=== PATIENT | female | born 1980 | race Caucasian/White ===

== ENCOUNTER → 2019-01-19 | Outpatient (CLI) | payer OTHER | END | disposition home or self-care (01) | LOC: WOUND 07:46 | PROVIDERS: ATTEND Family Medicine | DX: T81.89XA Other complications of procedures, not elsewhere classified, initial encounter (principal); I87.333 Chronic venous hypertension (idiopathic) with ulcer and inflammation of bilateral lower extremity; L97.211 Non-pressure chronic ulcer of right calf limited to breakdown of skin; L97.821 Non-pressure chronic ulcer of other part of left lower leg limited to breakdown of skin; L97.311 Non-pressure chronic ulcer of right ankle limited to breakdown of skin; E06.5 Other chronic thyroiditis; G89.29 Other chronic pain; M25.50 Pain in unspecified joint; E78.5 Hyperlipidemia, unspecified; M06.9 Rheumatoid arthritis, unspecified; M05.10 Rheumatoid lung disease with rheumatoid arthritis of unspecified site; F17.200 Nicotine dependence, unspecified, uncomplicated; E66.01 Morbid (severe) obesity due to excess calories; Z68.43 Body mass index [BMI] 50.0-59.9, adult; Z90.49 Acquired absence of other specified parts of digestive tract; Y92.89 Other specified places as the place of occurrence of the external cause; Y83.8 Other surgical procedures as the cause of abnormal reaction of the patient, or of later complication, without mention of misadventure at the time of the procedure | CPT/HCPCS: 97597; 97598; 99205 ==

== ENCOUNTER 2019-01-26 09:39 | Outpatient (CLI) | payer OTHER | END 2019-01-26 23:59 | disposition home or self-care (01) | LOC: WOUND 09:39 | PROVIDERS: ATTEND Family Medicine | DX: T81.89XD Other complications of procedures, not elsewhere classified, subsequent encounter (principal); I87.333 Chronic venous hypertension (idiopathic) with ulcer and inflammation of bilateral lower extremity; L97.211 Non-pressure chronic ulcer of right calf limited to breakdown of skin; L97.821 Non-pressure chronic ulcer of other part of left lower leg limited to breakdown of skin; L97.311 Non-pressure chronic ulcer of right ankle limited to breakdown of skin; E06.5 Other chronic thyroiditis; G89.29 Other chronic pain; M25.50 Pain in unspecified joint; E78.5 Hyperlipidemia, unspecified; M06.9 Rheumatoid arthritis, unspecified; M05.10 Rheumatoid lung disease with rheumatoid arthritis of unspecified site; F17.200 Nicotine dependence, unspecified, uncomplicated; E66.01 Morbid (severe) obesity due to excess calories; Z68.43 Body mass index [BMI] 50.0-59.9, adult; Z90.49 Acquired absence of other specified parts of digestive tract; Y83.8 Other surgical procedures as the cause of abnormal reaction of the patient, or of later complication, without mention of misadventure at the time of the procedure | CPT/HCPCS: 97597; 97598 ==

== ENCOUNTER 2019-02-02 10:24 | Outpatient (CLI) | payer OTHER | END 2019-02-02 23:59 | disposition home or self-care (01) | LOC: WOUND 10:24 | PROVIDERS: ATTEND Family Medicine | DX: T81.89XD Other complications of procedures, not elsewhere classified, subsequent encounter (principal); I87.333 Chronic venous hypertension (idiopathic) with ulcer and inflammation of bilateral lower extremity; L97.211 Non-pressure chronic ulcer of right calf limited to breakdown of skin; L97.821 Non-pressure chronic ulcer of other part of left lower leg limited to breakdown of skin; L97.311 Non-pressure chronic ulcer of right ankle limited to breakdown of skin; E06.5 Other chronic thyroiditis; G89.29 Other chronic pain; M25.50 Pain in unspecified joint; E78.5 Hyperlipidemia, unspecified; M06.9 Rheumatoid arthritis, unspecified; M05.10 Rheumatoid lung disease with rheumatoid arthritis of unspecified site; F17.200 Nicotine dependence, unspecified, uncomplicated; E66.01 Morbid (severe) obesity due to excess calories; Z68.43 Body mass index [BMI] 50.0-59.9, adult; Z90.49 Acquired absence of other specified parts of digestive tract; Y83.8 Other surgical procedures as the cause of abnormal reaction of the patient, or of later complication, without mention of misadventure at the time of the procedure | CPT/HCPCS: 97597; 97598 ==

== ENCOUNTER 2019-02-02 11:10 | Outpatient (CLI) | payer OTHER | END 2019-02-02 23:59 | disposition home or self-care (01) | LOC: CVU 11:10 | PROVIDERS: ATTEND Family Medicine | DX: L97.811 Non-pressure chronic ulcer of other part of right lower leg limited to breakdown of skin (principal); I70.203 Unspecified atherosclerosis of native arteries of extremities, bilateral legs | CPT/HCPCS: 93922; 93925; 93970 ==

== ENCOUNTER 2019-02-16 10:38 | Outpatient (CLI) | payer OTHER | END 2019-02-16 23:59 | disposition home or self-care (01) | LOC: WOUND 10:38 | PROVIDERS: ATTEND Family Medicine | DX: T81.89XD Other complications of procedures, not elsewhere classified, subsequent encounter (principal); I87.333 Chronic venous hypertension (idiopathic) with ulcer and inflammation of bilateral lower extremity; L97.211 Non-pressure chronic ulcer of right calf limited to breakdown of skin; L97.821 Non-pressure chronic ulcer of other part of left lower leg limited to breakdown of skin; L97.311 Non-pressure chronic ulcer of right ankle limited to breakdown of skin; M05.10 Rheumatoid lung disease with rheumatoid arthritis of unspecified site; E06.5 Other chronic thyroiditis; G89.29 Other chronic pain; M25.50 Pain in unspecified joint; E78.5 Hyperlipidemia, unspecified; M06.9 Rheumatoid arthritis, unspecified; F17.200 Nicotine dependence, unspecified, uncomplicated; E66.01 Morbid (severe) obesity due to excess calories; Z68.43 Body mass index [BMI] 50.0-59.9, adult; Z90.49 Acquired absence of other specified parts of digestive tract; Y83.8 Other surgical procedures as the cause of abnormal reaction of the patient, or of later complication, without mention of misadventure at the time of the procedure | CPT/HCPCS: 97597 ==

== ENCOUNTER 2019-02-23 09:46 | Outpatient (CLI) | payer OTHER | END 2019-02-23 23:59 | disposition home or self-care (01) | LOC: WOUND 09:46 | PROVIDERS: ATTEND Family Medicine | DX: T81.89XD Other complications of procedures, not elsewhere classified, subsequent encounter (principal); I87.333 Chronic venous hypertension (idiopathic) with ulcer and inflammation of bilateral lower extremity; L97.211 Non-pressure chronic ulcer of right calf limited to breakdown of skin; L97.821 Non-pressure chronic ulcer of other part of left lower leg limited to breakdown of skin; L97.311 Non-pressure chronic ulcer of right ankle limited to breakdown of skin; M05.10 Rheumatoid lung disease with rheumatoid arthritis of unspecified site; E06.5 Other chronic thyroiditis; G89.29 Other chronic pain; M25.50 Pain in unspecified joint; E78.5 Hyperlipidemia, unspecified; M06.9 Rheumatoid arthritis, unspecified; F17.200 Nicotine dependence, unspecified, uncomplicated; E66.01 Morbid (severe) obesity due to excess calories; Z68.43 Body mass index [BMI] 50.0-59.9, adult; Z90.49 Acquired absence of other specified parts of digestive tract; Y83.8 Other surgical procedures as the cause of abnormal reaction of the patient, or of later complication, without mention of misadventure at the time of the procedure | CPT/HCPCS: 97597 ==

== ENCOUNTER 2019-06-01 10:51 | Inpatient (IN) | payer BC ==
[~2019-06-01] VITALS: Ht 170.2 cm; Wt 147.0 kg
--- NOTE | 2019-06-01 11:00 | NUR ---
PT AMBULATORY WITH STEADY GAIT FROM TRIAGE TO ROOM.
[2019-06-01] MEDS ORDERED: ANTIBIOTIC (11:16)
--- NOTE | 2019-06-01 11:18 | NUR ---
PT HERE FOR POSSIBLE INFECTION TO RLE. HAD SURGERY FOR BROKEN FIBULA/DISLOCATED ANKLE IN DECEMBER 2017. INFECTION DEVELOPED BY 2017. HAS BEEN SEEING WOUND CARE IN [place] SINCE THEN. PT SENT TO ER BY WOUND CARE TODAY. PT WAS DX WITH STEP ON TUESDAY. PT STATES THAT TODAY SHE WOKE UP WITH NEW REDNESS SURROUNDING WOUND THAT SPREAD UP THIGH TO GROIN. PT RESTING ON GURNEY. VSS. NADN. GALEANO AT BEDSIDE ASSESSING PT AND DISCUSSING POC NOW. PT HAS BEEN ON UNKNOWN ABX FOR STREP SINCE TUESDAY, HAS NOT BEEN ON ABX FOR WOUND.
[2019-06-01] MEDS ORDERED: SODIUM CHLORIDE FLUSH 10ML SYR IVF ONE (11:30)
[2019-06-01] MEDS ORDERED: MEROPENEM 1 GM in SODIUM CHLORIDE 0.9% 100 ML IVPB ONE (11:30)
[2019-06-01 11:39] LABS: MEAN CORPUSCULAR HGB CONC 32.5 g/dL (32.4-35.8); MEAN PLATELET VOLUME 8.8 fL (7.4-10.4); PLATELET COUNT 294 x10^3/uL (130-400); RED BLOOD COUNT 4.43 x10^6/uL (3.82-5.3)
[2019-06-01 12:01] LABS: BASOPHILS % (AUTO) 0 % (0-1); EOSINOPHILS % (AUTO) 0 % (1-7); LYMPHOCYTES # (AUTO) 0.55 x10^3/uL (1-3.4); LYMPHOCYTES % (AUTO) 3 % (22-44); MD SCAN; MONOCYTES # (AUTO) 0.42 x10^3/uL (0.2-0.8); MONOCYTES % (AUTO) 3 % (2-9); NEUTROPHILS # (AUTO) 15.52 x10^3/uL (1.8-6.8); NEUTROPHILS % (AUTO) 94 % (42-75)
--- NOTE | 2019-06-01 12:08 | NUR ---
Note josselyn in EDM - 06/01/19 at 1212 by RADHA PT BACK FROM CT. DENIES NAUSEA, NO CHANGE IN ABDOMINAL PAIN. RESTING CALMLY, CALL KEITH IN REACH, VSS. AWAITING CT RESULTS.
--- NOTE | 2019-06-01 12:13 | NUR ---
PT RESTING ON AJ. GOKUL. VSS. DENIES NEEDS AT THIS TIME. AWARE OF POC.
[2019-06-01] MEDS ORDERED: NAPR-685 PO (12:16)
[2019-06-01] MEDS ORDERED: POTASSIUM (12:16)
[2019-06-01] MEDS ORDERED: CHOL2000 PO (12:16)
[2019-06-01] MEDS ORDERED: OMEP-110 PO (12:16)
[2019-06-01] MEDS ORDERED: ALBU0.63 NEB (12:16)
[2019-06-01] MEDS ORDERED: LEVO200T5 PO (12:16)
[2019-06-01] MEDS ORDERED: FURO20TA3 PO (12:16)
[2019-06-01] MEDS ORDERED: PREDNISONE (12:16)
[2019-06-01 13:07] LABS: ALBUMIN 2.7 g/dL (3.4-5.0); ANION GAP 9 mmol/L (5-15); CALCIUM 8.7 mg/dL (8.5-10.1); CHLORIDE 106 mmol/L (98-107)
[2019-06-01 13:10] LABS: ALANINE AMINOTRANSFERASE 41 U/L (12-78); CREATININE 1.01 mg/dL (0.55-1.02)
[2019-06-01 13:12] LABS: ALKALINE PHOSPHATASE 76 U/L (45-117); BILIRUBIN,TOTAL 0.7 mg/dL (0.2-1.0); TOTAL PROTEIN 8.6 g/dL (6.4-8.2)
[2019-06-01] MEDS ORDERED: SODIUM CHLORIDE FLUSH 10ML SYR IVF PRN (13:30)
[2019-06-01] MEDS ORDERED: SODIUM CHLORIDE 0.9% 1,000ML IVBOLUS ONE (13:30)
--- NOTE | 2019-06-01 13:41 | NUR ---
RECEIVED BEDSIDE REPORT FROM LM ORTEGA.
--- NOTE | 2019-06-01 13:53 | NUR ---
PT RESTING ON GURNEY. NO ACUTE DISTRESS NOTED. PT VERBALIZES UNDERSTANDING REGARDING POC. NO NEEDS REQUESWTED AT THIS TIME.
--- NOTE | 2019-06-01 14:08 | NUR ---
REPORT TO LM ESPINO. ALL QUESTIONS ANSWERED.
--- NOTE | 2019-06-01 14:41 | NUR ---
PT BEING TRANSPORTED TO FLOOR. PT LEFT WITH ALL PERSONAL BELONGINGS. FAMILY WITH PT.
[2019-06-01] MEDS ORDERED: ENOXAPARIN 40 MG/0.4 ML SQ SCH (15:00)
[2019-06-01] MEDS ORDERED: ONDANSETRON ODT 4 MG PO PRN (15:00)
[2019-06-01] MEDS ORDERED: ONDANSETRON 2MG/ML, 2ML IVPush PRN (15:00)
[2019-06-01] MEDS ORDERED: DOCUSATE 100 MG CAPSULE PO PRN (15:00)
[2019-06-01] MEDS ORDERED: ACETAMINOPHEN 325 MG TABLET PO PRN (15:00)
[2019-06-01] MEDS ORDERED: POLYETHYLENE GLYCOL 17 GM PACKET PO PRN (15:00)
[2019-06-01 15:33] VITALS: BP 100/65
[2019-06-01] MEDS: CLINDAMYCIN PMX 600MG/50ML 50 ML IV SCH (15:58)
[2019-06-01 16:08] VITALS: BP 114/79
[2019-06-01 16:46] LABS: HCT (SEDRATE) 35.5 % (34.6-47.8)
[2019-06-01 17:01] LABS: HEMOGLOBIN A1C 6.1 % (4.2-6.3)
[2019-06-01] MEDS: LACTATED RINGERS 1,000 ML IV SCH (17:41)
[2019-06-01 19:18] VITALS: BP 107/61
[2019-06-01] MEDS: IBUPROFEN 600 MG TABLET PO PRN (20:54)
[2019-06-02] MEDS: CLINDAMYCIN PMX 600MG/50ML 50 ML IV SCH ×2 (00:27→10:33)
[2019-06-02 01:21] VITALS: BP 110/65
[2019-06-02] MEDS: LACTATED RINGERS 1,000 ML IV SCH ×2 (04:30→15:09)
[2019-06-02] MEDS ORDERED: LEVOTHYROXINE 100 MCG TABLET ONE ×2 (04:57→10:29)
[2019-06-02] MEDS: LEVOTHYROXINE 200 MCG TABLET PO SCH (05:02)
[2019-06-02 05:13] LABS: BASOPHILS # (AUTO) 0.01 x10^3/uL (0-0.1); BASOPHILS % (AUTO) 0 % (0-1); EOSINOPHILS # (AUTO) 0.02 x10^3/uL (0-0.4); EOSINOPHILS % (AUTO) 0 % (1-7); LYMPHOCYTES # (AUTO) 1.29 x10^3/uL (1-3.4); LYMPHOCYTES % (AUTO) 8 % (22-44); MD NO; MEAN CORPUSCULAR HEMOGLOBIN 26.4 pg (27.0-34.8); MEAN CORPUSCULAR VOLUME 82.4 fL (80-100); MEAN PLATELET VOLUME 9.7 fL (7.4-10.4); MONOCYTES # (AUTO) 0.71 x10^3/uL (0.2-0.8); MONOCYTES % (AUTO) 4 % (2-9); NEUTROPHILS # (AUTO) 15.03 x10^3/uL (1.8-6.8); NEUTROPHILS % (AUTO) 88 % (42-75); PLATELET COUNT 313 x10^3/uL (130-400); RED BLOOD COUNT 4.23 x10^6/uL (3.82-5.3); RED CELL DISTRIBUTION WIDTH 15.5 % (9.6-15.2)
[2019-06-02 05:27] LABS: ANION GAP 7 mmol/L (5-15); CALCIUM 8.7 mg/dL (8.5-10.1); CHLORIDE 107 mmol/L (98-107)
[2019-06-02 05:28] LABS: CREATININE 0.81 mg/dL (0.55-1.02)
[2019-06-02 07:45] VITALS: BP 108/72
[2019-06-02] MEDS ORDERED: LEVOTHYROXINE 200 MCG TABLET PO SCH (09:00)
[2019-06-02] MEDS ORDERED: GADOTERATE 5 MMOL/10 ML VIAL ONE (09:30)
[2019-06-02] MEDS ORDERED: GADOTERATE 10 MMOL/20 ML SYR ONE (09:30)
[2019-06-02] MEDS: IBUPROFEN 600 MG TABLET PO PRN ×2 (10:32→17:23)
[2019-06-02] MEDS: OMEPRAZOLE 20 MG CAPSULE.DR PO SCH (10:33)
[2019-06-02] MEDS ORDERED: VANCOMYCIN PER PHARMACY MC PRN (12:00)
[2019-06-02] MEDS ORDERED: PHARMACOKINETIC MONITORING MC PRN (12:00)
[2019-06-02] MEDS ORDERED: PHARMACOKINETIC CONSULTATION MC ONE (12:00)
[2019-06-02] MEDS ORDERED: VANCOMYCIN 2,200 MG in SODIUM CHLORIDE 0.9% 500 ML IV SCH (12:30)
[2019-06-02] MEDS ORDERED: ENOXAPARIN 30 MG/0.3 ML SQ SCH (15:30)
[2019-06-02] MEDS: ENOXAPARIN 30 MG/0.3 ML SQ SCH (15:30)
[2019-06-02 17:10] VITALS: BP 118/78
[2019-06-02] MEDS: CLINDAMYCIN PMX 900MG/50ML 50 ML IV SCH (18:28)
[2019-06-02 19:27] VITALS: BP 99/64
[2019-06-03] MEDS: VANCOMYCIN 2,200 MG in SODIUM CHLORIDE 0.9% 500 ML IV SCH ×2 (00:24→13:10)
[2019-06-03] MEDS: IBUPROFEN 600 MG TABLET PO PRN ×2 (00:36→15:44)
[2019-06-03 01:43] VITALS: BP 97/64
[2019-06-03] MEDS: CLINDAMYCIN PMX 900MG/50ML 50 ML IV SCH ×3 (02:53→22:19)
[2019-06-03 05:22] LABS: ANION GAP 4 mmol/L (5-15); CALCIUM 8.2 mg/dL (8.5-10.1); CHLORIDE 108 mmol/L (98-107); CREATININE 0.77 mg/dL (0.55-1.02)
[2019-06-03 05:27] LABS: BASOPHILS # (AUTO) 0.03 x10^3/uL (0-0.1); BASOPHILS % (AUTO) 0 % (0-1); EOSINOPHILS # (AUTO) 0.09 x10^3/uL (0-0.4); EOSINOPHILS % (AUTO) 1 % (1-7); LYMPHOCYTES # (AUTO) 1.24 x10^3/uL (1-3.4); LYMPHOCYTES % (AUTO) 13 % (22-44); MD NO; MEAN CORPUSCULAR HEMOGLOBIN 26.5 pg (27.0-34.8); MEAN CORPUSCULAR HGB CONC 32.1 g/dL (32.4-35.8); MEAN CORPUSCULAR VOLUME 82.3 fL (80-100); MEAN PLATELET VOLUME 9.1 fL (7.4-10.4); MONOCYTES # (AUTO) 0.66 x10^3/uL (0.2-0.8); MONOCYTES % (AUTO) 7 % (2-9); NEUTROPHILS # (AUTO) 7.67 x10^3/uL (1.8-6.8); NEUTROPHILS % (AUTO) 79 % (42-75); PLATELET COUNT 403 x10^3/uL (130-400); RED BLOOD COUNT 4.11 x10^6/uL (3.82-5.3); RED CELL DISTRIBUTION WIDTH 15.2 % (9.6-15.2)
[2019-06-03] MEDS: ENOXAPARIN 30 MG/0.3 ML SQ SCH ×2 (05:53→18:17)
[2019-06-03] MEDS: LEVOTHYROXINE 200 MCG TABLET PO SCH ×2 (05:54→08:53)
[2019-06-03 06:49] VITALS: BP 94/61
[2019-06-03] MEDS: OMEPRAZOLE 20 MG CAPSULE.DR PO SCH (08:53)
[2019-06-03] MEDS ORDERED: POTASSIUM CHLORIDE 20 MEQ TAB.ER.PRT PO ONE (09:30)
[2019-06-03] MEDS: LACTOBACILLUS CHEW TABLET PO SCH ×3 (12:08→22:19)
[2019-06-03 12:45] VITALS: BP 113/72
[2019-06-03 19:20] VITALS: BP 104/70
[2019-06-04] MEDS: VANCOMYCIN 2,200 MG in SODIUM CHLORIDE 0.9% 500 ML IV SCH ×2 (00:39→13:00)
[2019-06-04 01:55] VITALS: BP 127/85
[2019-06-04] MEDS: ENOXAPARIN 30 MG/0.3 ML SQ SCH ×2 (06:00→17:32)
[2019-06-04] MEDS: CLINDAMYCIN PMX 900MG/50ML 50 ML IV SCH ×3 (06:24→23:18)
[2019-06-04 08:02] VITALS: BP 127/75
[2019-06-04] MEDS: LEVOTHYROXINE 200 MCG TABLET PO SCH (08:31)
[2019-06-04] MEDS: OMEPRAZOLE 20 MG CAPSULE.DR PO SCH (08:31)
[2019-06-04] MEDS: LACTOBACILLUS CHEW TABLET PO SCH ×3 (08:31→20:46)
[2019-06-04 13:08] VITALS: BP 106/69
[2019-06-04] MEDS: IBUPROFEN 600 MG TABLET PO PRN ×2 (15:14→23:25)
[2019-06-04 19:15] VITALS: BP 126/80
[2019-06-05] MEDS: VANCOMYCIN 2,200 MG in SODIUM CHLORIDE 0.9% 500 ML IV SCH ×2 (00:58→13:22)
[2019-06-05 02:05] VITALS: BP 138/80
[2019-06-05] MEDS: ENOXAPARIN 30 MG/0.3 ML SQ SCH ×2 (04:12→18:20)
[2019-06-05] MEDS: LEVOTHYROXINE 200 MCG TABLET PO SCH (04:17)
[2019-06-05 05:46] LABS: BASOPHILS # (AUTO) 0.02 x10^3/uL (0-0.1); BASOPHILS % (AUTO) 0 % (0-1); EOSINOPHILS # (AUTO) 0.21 x10^3/uL (0-0.4); EOSINOPHILS % (AUTO) 2 % (1-7); LYMPHOCYTES # (AUTO) 1.11 x10^3/uL (1-3.4); LYMPHOCYTES % (AUTO) 12 % (22-44); MD NO; MEAN CORPUSCULAR HEMOGLOBIN 26.2 pg (27.0-34.8); MEAN CORPUSCULAR HGB CONC 31.9 g/dL (32.4-35.8); MEAN CORPUSCULAR VOLUME 82.1 fL (80-100); MONOCYTES # (AUTO) 0.65 x10^3/uL (0.2-0.8); MONOCYTES % (AUTO) 7 % (2-9); NEUTROPHILS # (AUTO) 6.95 x10^3/uL (1.8-6.8); NEUTROPHILS % (AUTO) 78 % (42-75); PLATELET COUNT 470 x10^3/uL (130-400); RED BLOOD COUNT 4.11 x10^6/uL (3.82-5.3); RED CELL DISTRIBUTION WIDTH 15.4 % (9.6-15.2)
[2019-06-05 06:00] LABS: CHLORIDE 110 mmol/L (98-107)
[2019-06-05 06:11] LABS: ANION GAP 5 mmol/L (5-15); CALCIUM 8.4 mg/dL (8.5-10.1); CREATININE 0.71 mg/dL (0.55-1.02)
[2019-06-05] MEDS: CLINDAMYCIN PMX 900MG/50ML 50 ML IV SCH ×2 (06:30→15:59)
[2019-06-05 07:52] VITALS: BP 110/74
[2019-06-05] MEDS: LACTOBACILLUS CHEW TABLET PO SCH ×3 (08:44→22:04)
[2019-06-05] MEDS: OMEPRAZOLE 20 MG CAPSULE.DR PO SCH (08:44)
[2019-06-05 09:18] LABS: HCG UR SG 1.014 (1.003-1.030)
[2019-06-05] MEDS ORDERED: EPINEPHRINE 1 MG/ML, 1ML ONE (09:18)
[2019-06-05] MEDS ORDERED: BUPIVACAINE/PF 0.5% ONE (09:18)
[2019-06-05] MEDS ORDERED: FENTANYL PF 250 MCG/5ML ONE (09:34)
[2019-06-05] MEDS ORDERED: CEFAZOLIN 1,000 MG ONE (10:24)
[2019-06-05] MEDS ORDERED: ONDANSETRON 2MG/ML, 2ML ONE (10:24)
[2019-06-05] MEDS ORDERED: SUGAMMADEX 200 MG/2 ML IVPush ONE (10:24)
[2019-06-05] MEDS ORDERED: ROCURONIUM 10MG/ML,5ML ONE (10:24)
[2019-06-05] MEDS ORDERED: DEXAMETHASONE 4 MG/ML, 1ML ONE (10:24)
[2019-06-05] MEDS ORDERED: LIDOCAINE-MPF 2% ,5ML ONE (10:24)
[2019-06-05] MEDS ORDERED: PROPOFOL 10 MG/ML, 20ML ONE (10:24)
[2019-06-05] MEDS ORDERED: MEPERIDINE/PF 100 MG/ML ONE (10:26)
[2019-06-05] MEDS ORDERED: OXYcodone 5 MG/5 ML ORAL.SOL UDC PO PRN (10:30)
[2019-06-05] MEDS ORDERED: hydrALAzine 20 MG/ML, 1ML IV PRN (10:30)
[2019-06-05] MEDS ORDERED: HYDROmorphone 2 MG/ML, 1ML IVPush PRN (10:30)
[2019-06-05] MEDS ORDERED: MEPERIDINE/PF 25MG/ML,1ML IVPush PRN (10:30)
[2019-06-05] MEDS ORDERED: ACETAMINOPHEN 325 MG TABLET PO PRN (10:30)
[2019-06-05] MEDS ORDERED: PROMETHAZINE 25 MG/ML, 1ML IV PRN (10:30)
[2019-06-05] MEDS ORDERED: ALBUTEROL SULFATE 2.5 MG/3 ML NPPB PRN (10:30)
[2019-06-05] MEDS ORDERED: FENTANYL PF 100 MCG/2ML ONE ×2 (10:44→11:00)
[2019-06-05] MEDS: FENTANYL PF 100 MCG/2ML IV PRN ×3 (10:46→11:04)
[2019-06-05] MEDS ORDERED: LORazepam 2 MG/ML, 1ML IVPush PRN (11:00)
[2019-06-05] MEDS ORDERED: OXYcodone 5 MG/5 ML ORAL.SOL UDC ONE (11:00)
[2019-06-05] MEDS ORDERED: ACETAMINOPHEN 650 MG/20.3 ML UDC ONE (11:00)
[2019-06-05 14:11] VITALS: BP 103/70
[2019-06-05] MEDS: IBUPROFEN 600 MG TABLET PO PRN ×2 (15:58→22:04)
[2019-06-05 19:34] VITALS: BP 102/66
[2019-06-06 00:10] VITALS: BP 112/72
[2019-06-06] MEDS: CLINDAMYCIN PMX 900MG/50ML 50 ML IV SCH ×3 (00:37→16:43)
[2019-06-06] MEDS: VANCOMYCIN 2,200 MG in SODIUM CHLORIDE 0.9% 500 ML IV SCH ×2 (02:23→13:38)
[2019-06-06 03:48] VITALS: BP 102/67
[2019-06-06 05:08] LABS: HCT (SEDRATE) 31.5 % (34.6-47.8)
[2019-06-06 05:11] LABS: BASOPHILS # (AUTO) 0.03 x10^3/uL (0-0.1); BASOPHILS % (AUTO) 0 % (0-1); EOSINOPHILS % (AUTO) 1 % (1-7); LYMPHOCYTES # (AUTO) 1.04 x10^3/uL (1-3.4); LYMPHOCYTES % (AUTO) 10 % (22-44); MD NO; MEAN CORPUSCULAR HEMOGLOBIN 26.1 pg (27.0-34.8); MEAN CORPUSCULAR HGB CONC 31.6 g/dL (32.4-35.8); MEAN CORPUSCULAR VOLUME 82.4 fL (80-100); MEAN PLATELET VOLUME 8.8 fL (7.4-10.4); MONOCYTES # (AUTO) 0.72 x10^3/uL (0.2-0.8); MONOCYTES % (AUTO) 7 % (2-9); NEUTROPHILS # (AUTO) 8.13 x10^3/uL (1.8-6.8); NEUTROPHILS % (AUTO) 81 % (42-75); PLATELET COUNT 493 x10^3/uL (130-400); RED BLOOD COUNT 3.76 x10^6/uL (3.82-5.3); RED CELL DISTRIBUTION WIDTH 15.3 % (9.6-15.2)
[2019-06-06 05:19] LABS: ANION GAP 5 mmol/L (5-15); CHLORIDE 108 mmol/L (98-107); CREATININE 0.64 mg/dL (0.55-1.02)
[2019-06-06] MEDS: ENOXAPARIN 30 MG/0.3 ML SQ SCH ×2 (06:20→16:43)
[2019-06-06] MEDS: LEVOTHYROXINE 200 MCG TABLET PO SCH ×2 (06:20→09:00)
[2019-06-06 07:46] VITALS: BP 103/67
[2019-06-06] MEDS: OMEPRAZOLE 20 MG CAPSULE.DR PO SCH (09:11)
[2019-06-06] MEDS: LACTOBACILLUS CHEW TABLET PO SCH ×2 (09:11→16:43)
[2019-06-06] MEDS: IBUPROFEN 600 MG TABLET PO PRN (13:02)
[2019-06-06 13:35] VITALS: BP 111/64
[2019-06-06 18:33] VITALS: BP 94/56
[2019-06-07 00:11] VITALS: BP 133/84
[2019-06-07] MEDS: LACTOBACILLUS CHEW TABLET PO SCH ×4 (00:23→20:51)
[2019-06-07] MEDS: CLINDAMYCIN PMX 900MG/50ML 50 ML IV SCH ×4 (00:23→23:52)
[2019-06-07] MEDS: IBUPROFEN 600 MG TABLET PO PRN ×3 (00:28→15:31)
[2019-06-07] MEDS: ENOXAPARIN 30 MG/0.3 ML SQ SCH ×2 (06:42→17:44)
[2019-06-07] MEDS: LEVOTHYROXINE 200 MCG TABLET PO SCH (08:19)
[2019-06-07] MEDS: OMEPRAZOLE 20 MG CAPSULE.DR PO SCH (08:19)
[2019-06-07 08:53] VITALS: BP 122/81
[2019-06-07 14:31] VITALS: BP 106/67
[2019-06-07 20:54] VITALS: BP 120/76
[2019-06-08 00:54] VITALS: BP 119/77
[2019-06-08] MEDS: ENOXAPARIN 30 MG/0.3 ML SQ SCH ×2 (05:30→18:26)
[2019-06-08 05:33] LABS: BASOPHILS # (AUTO) 0.02 x10^3/uL (0-0.1); BASOPHILS % (AUTO) 0 % (0-1); EOSINOPHILS # (AUTO) 0.18 x10^3/uL (0-0.4); EOSINOPHILS % (AUTO) 2 % (1-7); LYMPHOCYTES # (AUTO) 1.16 x10^3/uL (1-3.4); LYMPHOCYTES % (AUTO) 16 % (22-44); MD NO; MEAN CORPUSCULAR HEMOGLOBIN 26.2 pg (27.0-34.8); MEAN CORPUSCULAR VOLUME 81.9 fL (80-100); MEAN PLATELET VOLUME 8.6 fL (7.4-10.4); MONOCYTES # (AUTO) 0.61 x10^3/uL (0.2-0.8); MONOCYTES % (AUTO) 8 % (2-9); NEUTROPHILS # (AUTO) 5.49 x10^3/uL (1.8-6.8); NEUTROPHILS % (AUTO) 74 % (42-75); PLATELET COUNT 568 x10^3/uL (130-400); RED BLOOD COUNT 4.61 x10^6/uL (3.82-5.3); RED CELL DISTRIBUTION WIDTH 15.8 % (9.6-15.2)
[2019-06-08] MEDS: IBUPROFEN 600 MG TABLET PO PRN ×3 (05:34→21:12)
[2019-06-08 05:47] LABS: ANION GAP 5 mmol/L (5-15); CALCIUM 8.9 mg/dL (8.5-10.1); CHLORIDE 107 mmol/L (98-107); CREATININE 0.81 mg/dL (0.55-1.02)
[2019-06-08 07:13] VITALS: BP 115/74
[2019-06-08] MEDS: OMEPRAZOLE 20 MG CAPSULE.DR PO SCH (08:38)
[2019-06-08] MEDS: LEVOTHYROXINE 200 MCG TABLET PO SCH (08:38)
[2019-06-08] MEDS: CLINDAMYCIN PMX 900MG/50ML 50 ML IV SCH (08:38)
[2019-06-08] MEDS: LACTOBACILLUS CHEW TABLET PO SCH ×3 (08:38→21:12)
[2019-06-08 13:38] VITALS: BP 136/91
[2019-06-08] MEDS: DAPTOMYCIN 900 MG in SODIUM CHLORIDE 0.9% 100 ML IV SCH (15:16)
[2019-06-08 19:37] VITALS: BP 101/67
[2019-06-08] MEDS: FUROSEMIDE 20 MG TABLET PO SCH (21:13)
[2019-06-09 00:45] VITALS: BP 110/62
[2019-06-09] MEDS: LEVOTHYROXINE 200 MCG TABLET PO SCH (05:45)
[2019-06-09] MEDS: ENOXAPARIN 30 MG/0.3 ML SQ SCH ×2 (05:45→17:54)
[2019-06-09 06:39] VITALS: BP 126/84
[2019-06-09] MEDS: IBUPROFEN 600 MG TABLET PO PRN ×2 (08:33→15:18)
[2019-06-09] MEDS: FUROSEMIDE 20 MG TABLET PO SCH ×2 (08:33→21:28)
[2019-06-09] MEDS: OMEPRAZOLE 20 MG CAPSULE.DR PO SCH (08:33)
[2019-06-09] MEDS: LACTOBACILLUS CHEW TABLET PO SCH ×3 (08:33→21:28)
[2019-06-09 14:24] VITALS: BP 112/77
[2019-06-09] MEDS: DAPTOMYCIN 900 MG in SODIUM CHLORIDE 0.9% 100 ML IV SCH (15:18)
[2019-06-09 20:29] VITALS: BP 116/74
[2019-06-10 02:13] VITALS: BP 138/75
[2019-06-10] MEDS: LEVOTHYROXINE 200 MCG TABLET PO SCH (04:58)
[2019-06-10] MEDS: IBUPROFEN 600 MG TABLET PO PRN ×2 (04:58→15:33)
[2019-06-10] MEDS: ENOXAPARIN 30 MG/0.3 ML SQ SCH ×2 (05:05→18:29)
[2019-06-10 08:36] VITALS: BP 111/76
[2019-06-10] MEDS: OMEPRAZOLE 20 MG CAPSULE.DR PO SCH (10:19)
[2019-06-10] MEDS: FUROSEMIDE 20 MG TABLET PO SCH ×2 (10:20→21:07)
[2019-06-10] MEDS: LACTOBACILLUS CHEW TABLET PO SCH ×3 (10:20→21:07)
[2019-06-10 12:46] VITALS: BP 115/77
[2019-06-10] MEDS: DAPTOMYCIN 900 MG in SODIUM CHLORIDE 0.9% 100 ML IV SCH (16:35)
[2019-06-10 19:17] VITALS: BP 101/66
[2019-06-11 02:45] VITALS: BP 99/63
[2019-06-11] MEDS: LEVOTHYROXINE 200 MCG TABLET PO SCH (05:09)
[2019-06-11] MEDS: ENOXAPARIN 30 MG/0.3 ML SQ SCH (05:09)
[2019-06-11] MEDS ORDERED: CATHFLO-ALTEPLASE 2 MG/2 ML CATHFLUSH ONE (05:30)
[2019-06-11 07:04] LABS: BASOPHILS # (AUTO) 0.04 x10^3/uL (0-0.1); BASOPHILS % (AUTO) 1 % (0-1); EOSINOPHILS # (AUTO) 0.13 x10^3/uL (0-0.4); EOSINOPHILS % (AUTO) 2 % (1-7); LYMPHOCYTES # (AUTO) 1.06 x10^3/uL (1-3.4); LYMPHOCYTES % (AUTO) 14 % (22-44); MD NO; MEAN CORPUSCULAR HEMOGLOBIN 25.8 pg (27.0-34.8); MEAN CORPUSCULAR HGB CONC 31.8 g/dL (32.4-35.8); MEAN PLATELET VOLUME 8.4 fL (7.4-10.4); MONOCYTES # (AUTO) 0.63 x10^3/uL (0.2-0.8); MONOCYTES % (AUTO) 8 % (2-9); NEUTROPHILS % (AUTO) 76 % (42-75); PLATELET COUNT 436 x10^3/uL (130-400); RED BLOOD COUNT 4.56 x10^6/uL (3.82-5.3); RED CELL DISTRIBUTION WIDTH 15.5 % (9.6-15.2)
[2019-06-11 07:12] LABS: ALANINE AMINOTRANSFERASE 30 U/L (12-78); ALBUMIN 2.7 g/dL (3.4-5.0); CALCIUM 9.3 mg/dL (8.5-10.1); CREATININE 0.87 mg/dL (0.55-1.02)
[2019-06-11 07:41] LABS: ALKALINE PHOSPHATASE 92 U/L (45-117); ANION GAP 9 mmol/L (5-15); BILIRUBIN,TOTAL 0.3 mg/dL (0.2-1.0); CHLORIDE 106 mmol/L (98-107); CREATINE KINASE, TOTAL 26 U/L (26-192); TOTAL PROTEIN 8.3 g/dL (6.4-8.2)
[2019-06-11 07:42] VITALS: BP 111/77
[2019-06-11] MEDS: FUROSEMIDE 20 MG TABLET PO SCH (08:36)
[2019-06-11] MEDS: OMEPRAZOLE 20 MG CAPSULE.DR PO SCH (08:36)
[2019-06-11] MEDS: LACTOBACILLUS CHEW TABLET PO SCH (08:36)
[2019-06-11] MEDS: DAPTOMYCIN 900 MG in SODIUM CHLORIDE 0.9% 100 ML IV SCH (13:01)
== END 2019-06-11 14:07 | disposition home or self-care (01) | DRG 492 ==
LOC: ED 11:50 → EDIP 13:21 → 3N 14:41 → 4NE 06-05 11:57 → DCLOUNGE 06-11 14:00
PROVIDERS: ADMIT Family Medicine; ATTEND Hospitalist
PROC: 0SPF04Z Removal of Internal Fixation Device from Right Ankle Joint, Open Approach (ICD-10-PCS; principal; 2019-06-05 09:30)
PROC: 02HV33Z Insertion of Infusion Device into Superior Vena Cava, Percutaneous Approach (ICD-10-PCS; 2019-06-08)
PROC: B5181ZA Fluoroscopy of Superior Vena Cava using Low Osmolar Contrast, Guidance (ICD-10-PCS; 2019-06-08)
PROC: B548ZZA Ultrasonography of Superior Vena Cava, Guidance (ICD-10-PCS; 2019-06-08)
DX: T84.624A Infection and inflammatory reaction due to internal fixation device of right fibula, initial encounter (principal); A41.9 Sepsis, unspecified organism; L03.115 Cellulitis of right lower limb; Z68.43 Body mass index [BMI] 50.0-59.9, adult; D63.8 Anemia in other chronic diseases classified elsewhere; E03.9 Hypothyroidism, unspecified; E66.01 Morbid (severe) obesity due to excess calories; E74.39 Other disorders of intestinal carbohydrate absorption; F17.210 Nicotine dependence, cigarettes, uncomplicated; J02.0 Streptococcal pharyngitis; K21.9 Gastro-esophageal reflux disease without esophagitis; M06.9 Rheumatoid arthritis, unspecified; M32.9 Systemic lupus erythematosus, unspecified; R73.03 Prediabetes; Z83.3 Family history of diabetes mellitus; Z88.0 Allergy status to penicillin; Y83.8 Other surgical procedures as the cause of abnormal reaction of the patient, or of later complication, without mention of misadventure at the time of the procedure; Y92.89 Other specified places as the place of occurrence of the external cause; T36.0X5A Adverse effect of penicillins, initial encounter
CPT/HCPCS: 36415; 73610; 76000; 84145; 96365; 96366; 99285; J3490; S0020; 36573; 71045; 80048; 80053; 80202; 81025; 82550; 83036; 83605; 85025; 85651; 86140; 87040; 87070; 87075; 87076; 87077; 87081; 87102; 87147; 87186; 87205; 93005; A9575; G0378; J0171; J0690; J0878; J1100; J1650; J2185; J2405; J2704; J2997; J3010; J3370; C1751; J2175; J7040; J7120

== ENCOUNTER → 2019-06-01 | Outpatient (CLI) | payer BC ==
[~2019-06-01] MED LIST: ALBU0.63 NEB; ANTIBIOTIC; CHOL2000 PO; FURO20TA3 PO; LEVO200T5 PO; NAPR-685 PO; OMEP-110 PO; POTASSIUM; PREDNISONE
== END | disposition home or self-care (01) ==
LOC: WOUND 10:12
PROVIDERS: ATTEND Family Medicine
DX: T81.89XD Other complications of procedures, not elsewhere classified, subsequent encounter (principal); I87.333 Chronic venous hypertension (idiopathic) with ulcer and inflammation of bilateral lower extremity; L97.211 Non-pressure chronic ulcer of right calf limited to breakdown of skin; L97.821 Non-pressure chronic ulcer of other part of left lower leg limited to breakdown of skin; L97.311 Non-pressure chronic ulcer of right ankle limited to breakdown of skin; M05.10 Rheumatoid lung disease with rheumatoid arthritis of unspecified site; E06.5 Other chronic thyroiditis; G89.29 Other chronic pain; M25.50 Pain in unspecified joint; E78.5 Hyperlipidemia, unspecified; M06.9 Rheumatoid arthritis, unspecified; F17.200 Nicotine dependence, unspecified, uncomplicated; E66.01 Morbid (severe) obesity due to excess calories; Z68.43 Body mass index [BMI] 50.0-59.9, adult; Z90.49 Acquired absence of other specified parts of digestive tract; Y83.8 Other surgical procedures as the cause of abnormal reaction of the patient, or of later complication, without mention of misadventure at the time of the procedure
CPT/HCPCS: 99215

== ENCOUNTER → 2019-06-28 | Outpatient (CLI) | payer BC | END | disposition home or self-care (01) | LOC: RAD 12:53 | PROVIDERS: ATTEND Internal Medicine Infectious Disease | DX: Z45.2 Encounter for adjustment and management of vascular access device (principal); Z79.2 Long term (current) use of antibiotics | CPT/HCPCS: 36573; C1751 ==